=== PATIENT | male | born 1965 | race Native Hawaiian/Other Pacific Islander ===

== ENCOUNTER 2017-03-19 15:58 | Inpatient (IN) | payer OTHER ==
[~2017-03-19] VITALS: Ht 175.3 cm; Wt 89.9 kg
[~2017-03-19 15:58] MED LIST: ASPI-93 PO; CRESTOR20 MG PO; GLYB5TAB65 PO; HYDR25TA60 PO; HYDRALAZINE50 MG PO; METFORMIN ER1000 MG PO; METO50TA27 PO; MONT10TA PO; OMEP20CA PO; TRIGLIDE160 MG PO; ZESTRIL40 MG PO
[2017-03-19 17:04] VITALS: BP 198/130; TEMP 97.9; Ht 175.3 cm; Wt 89.9 kg
[2017-03-19 17:43] LABS: PLATELET COUNT 246 K/uL (142-355)
[2017-03-19 17:56] LABS: POTASSIUM 3.9 mmol/L (3.6-5.2); SODIUM 140 mmol/L (136-145)
[2017-03-19 20:00] VITALS: BP 190/125; TEMP 97.5
[2017-03-20] VITALS (7 sets, daily range): BP systolic 121–186; BP diastolic 77–118; TEMP 97.1–98.6
[2017-03-20 10:21] LABS: PLATELET COUNT 207 K/uL (142-355)
[2017-03-20 10:37] LABS: POTASSIUM 3.9 mmol/L (3.6-5.2); SODIUM 136 mmol/L (136-145)
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
[2017-03-21 04:00] VITALS: BP 143/96; TEMP 97.9
[2017-03-21 05:27] LABS: PLATELET COUNT 180 K/uL (142-355)
[2017-03-21 05:51] LABS: POTASSIUM 3.6 mmol/L (3.6-5.2); SODIUM 140 mmol/L (136-145)
[2017-03-21 08:00] VITALS: BP 146/94; TEMP 97.8
--- NOTE | 2017-03-21 08:55 | NUR ---
PT REFUSED LOVENOX THIS AM. STATES HE WILL NOT TAKE IT BECASUE IT MAKES HIM SICK, BOGDAN, RN NOTIFIED TO NOTIFY DR DISLA.
[2017-03-21 12:00] VITALS: BP 118/78; TEMP 97.9
[2017-03-21 16:00] VITALS: BP 125/76; TEMP 98.3
[2017-03-21 20:00] VITALS: BP 151/91; TEMP 97.7
[2017-03-22] VITALS: BP 111/68; TEMP 97.7
[2017-03-22 04:00] VITALS: BP 147/95; TEMP 98.1
[2017-03-22 04:56] LABS: PLATELET COUNT 198 K/uL (142-355)
[2017-03-22 06:28] LABS: POTASSIUM 3.7 mmol/L (3.6-5.2); SODIUM 140 mmol/L (136-145)
[2017-03-22 07:44] VITALS: BP 145/95; TEMP 98.2
--- NOTE | 2017-03-22 10:21 | NUR ---
ASYA OKEEFE APPLIED TO PT LEGS. ENCOURAGED PT TO HAVE LEGS ELEVATED. PT VERBALIZED UNDERSTANDING.
[2017-03-22 12:00] VITALS: BP 137/89; TEMP 98.1
[2017-03-22 16:00] VITALS: BP 142/93; TEMP 97.9
[2017-03-22 20:00] VITALS: BP 155/93; TEMP 97.7
[2017-03-23] VITALS: BP 135/77; TEMP 97.5
[2017-03-23 04:00] VITALS: BP 144/95; TEMP 98.2
[2017-03-23 05:00] LABS: PLATELET COUNT 193 K/uL (142-355)
[2017-03-23 05:29] LABS: POTASSIUM 3.6 mmol/L (3.6-5.2); SODIUM 137 mmol/L (136-145)
[2017-03-23 08:00] VITALS: BP 145/93; TEMP 97.8
[2017-03-23 12:08] VITALS: BP 134/89; TEMP 98
== END 2017-03-23 14:31 | disposition home or self-care (01) | DRG 293 ==
LOC: MED/SURG 15:58
PROVIDERS: Emergency Medicine; ADMIT Internal Medicine
DX: I50.41 Acute combined systolic (congestive) and diastolic (congestive) heart failure (principal); I16.0 Hypertensive urgency; E11.9 Type 2 diabetes mellitus without complications; E78.4 Other hyperlipidemia; J40 Bronchitis, not specified as acute or chronic; J32.8 Other chronic sinusitis; K57.90 Diverticulosis of intestine, part unspecified, without perforation or abscess without bleeding; R06.09 Other forms of dyspnea
CPT/HCPCS: 36415; 36591; 36600; 80053; 80061; 81000; 82550; 82805; 82948; 83036; 83735; 83880; 84443; 84484; 85027; 85379; 93005; 93306; 96374; 96375; J1650; J1940; J3475

== ENCOUNTER 2017-08-06 15:57 | Outpatient (CLI) | payer OTHER | END 2017-08-06 19:33 | disposition home or self-care (01) | LOC: RAD 15:57 | DX: J40 Bronchitis, not specified as acute or chronic (principal) ==

== ENCOUNTER 2017-08-20 10:19 | Outpatient (CLI) | payer OTHER | END 2017-08-20 12:00 | disposition home or self-care (01) | LOC: CT 10:19 | DX: J44.9 Chronic obstructive pulmonary disease, unspecified (principal) | CPT/HCPCS: 36415; 82565; 84520; 94664; Q9963 ==

== ENCOUNTER 2017-12-13 11:35 | Outpatient (CLI) | payer OTHER ==
[2017-12-13 11:56] LABS: PLATELET COUNT 233 K/uL (142-355)
[2017-12-13 12:30] LABS: POTASSIUM 4.4 mmol/L (3.6-5.2)
== END 2017-12-13 22:22 | disposition home or self-care (01) ==
LOC: LAB 11:35
PROVIDERS: Internal Medicine
DX: E11.9 Type 2 diabetes mellitus without complications (principal); E78.5 Hyperlipidemia, unspecified; Z12.5 Encounter for screening for malignant neoplasm of prostate
CPT/HCPCS: 80053; 80061; 81000; 82043; 82570; 83036; 84153; 84439; 84443; 85027

== ENCOUNTER 2018-02-20 10:49 | Observation (INO) | payer OTHER ==
[2018-02-20] VITALS (18 sets, daily range): BP systolic 112–164; BP diastolic 68–84; TEMP 97.6–98.1
[~2018-02-20] VITALS: Ht 175.3 cm; Wt 82.6 kg
[2018-02-20] MEDS ORDERED: CARV12.5 PO (11:20)
[2018-02-20] MEDS ORDERED: SPIRIVA RE2.5 MCG/AC IN (11:21)
[2018-02-20 12:46] LABS: PLATELET COUNT 317 K/uL (142-355)
[2018-02-20 12:58] LABS: POTASSIUM 7.9 mmol/L (3.6-5.2)
[2018-02-20] MEDS ORDERED: FORTAMET1000 MG PO (18:46)
[2018-02-20] MEDS ORDERED: FURO20TA67 PO (18:51)
[2018-02-21] VITALS (10 sets, daily range): BP systolic 138–171; BP diastolic 64–91; TEMP 97.8
[2018-02-21 07:40] LABS: PLATELET COUNT 246 K/uL (142-355)
[2018-02-21 13:33] LABS: POTASSIUM 4.9 mmol/L (3.6-5.2)
== END 2018-02-21 14:20 | disposition home or self-care (01) ==
LOC: ED 10:49 → ICU 13:45 → MED/SURG 02-21 09:55
PROVIDERS: Emergency Medicine; ADMIT Family Medicine
DX: E87.1 Hypo-osmolality and hyponatremia (principal); E87.5 Hyperkalemia; R79.89 Other specified abnormal findings of blood chemistry; F10.10 Alcohol abuse, uncomplicated; I25.2 Old myocardial infarction; K21.9 Gastro-esophageal reflux disease without esophagitis; E11.9 Type 2 diabetes mellitus without complications; I12.9 Hypertensive chronic kidney disease with stage 1 through stage 4 chronic kidney disease, or unspecified chronic kidney disease; E11.22 Type 2 diabetes mellitus with diabetic chronic kidney disease; N18.3 Chronic kidney disease, stage 3 (moderate); E78.4 Other hyperlipidemia; D64.89 Other specified anemias; T38.3X5A Adverse effect of insulin and oral hypoglycemic [antidiabetic] drugs, initial encounter; Y92.89 Other specified places as the place of occurrence of the external cause
CPT/HCPCS: 36415; 80048; 80053; 81000; 83036; 83735; 84132; 85027; 93005; 96365; 96374; 99220; 99284; G0378; J0610; J2175; J2405

== ENCOUNTER 2019-02-12 10:58 | Emergency (ER) | payer OTHER ==
[~2019-02-12] VITALS: Ht 175.3 cm; Wt 86.2 kg
[~2019-02-12 10:58] MED LIST changes: +CARV12.5 PO; +FORTAMET1000 MG PO; +FURO20TA67 PO; +SPIRIVA RE2.5 MCG/AC IN
[2019-02-12 11:30] LABS: PLATELET COUNT 232 K/uL (142-355)
[2019-02-12 11:38] LABS: POTASSIUM 5.8 mmol/L (3.6-5.2); SODIUM 133 mmol/L (136-145)
[2019-02-12 14:35] VITALS: BP 127/88; TEMP 97.6
== END 2019-02-12 14:35 | disposition home or self-care (01) ==
LOC: ED 10:58
PROVIDERS: Emergency Medicine
DX: E86.0 Dehydration (principal); D72.829 Elevated white blood cell count, unspecified; I95.9 Hypotension, unspecified; R00.0 Tachycardia, unspecified
CPT/HCPCS: 80053; 82553; 84484; 85027; 93005; 96360; 99284